=== PATIENT | male | born 1955 | race Asian ===

== ENCOUNTER 2022-02-25 14:32 | Emergency (ER) | payer MEDICAID, SELFPAY ==
[2022-02-25 14:46] VITALS: BP 147/123; PULSE 58; RESP 24; TEMP 36.5; O2SAT 100
[2022-02-25 14:52] VITALS: RESP 24
--- NOTE | 2022-02-25 15:23 | ED.GENADULT ---
HPI - General Adult General Chief complaint: Unspecified Stated complaint: needed prescription Source: patient and family Mode of arrival: ambulatory Limitations: no limitations History of Present Illness HPI narrative: Patient presents for evaluation of shortness of breath. Symptom onset 2 days ago. He has a productive cough of white sputum and a runny nose. No recent sick contacts to his knowledge. He is unsure whether he has had COVID. He is from the [facility] and moved here in October. In 2020 he was experiencing respiratory symptoms for which she was seen in urgent care several times. He was told his symptoms were related to asthma. He was unable to see a primary care provider as they were concerned he may have COVID. Ultimately he had a chest x-ray performed showed cardiomegaly. He had an echocardiogram that showed an ejection fraction of 56%. Atrial fibrillation was noted. Patient had dilated left ventricular size with hypertrophied thornton and a regular contractility with hypokinesia of the mid to apical segments of the posterior left ventricular free wall. There was dilated left atrium, multi segmental wall motion abnormality but with adequate systolic function. There was mild pulmonary hypertension present. He was recommended he have an angiogram performed. His VISA was approved so he came to the [place] and daughter planned to have performed here. He has an appointment to see Dr. Sanchez at [facility] at the end of this month. He has been off his medications which include Plavix, Entresto, and nebivolol for about 1 week. He denies any fever, chills, nausea, vomiting, diarrhea, sore throat, chest pain Related Data Home Medications Medication Instructions Recorded Confirmed atorvastatin 20 mg tablet 20 mg PO HS 02/25/22 02/25/22 clopidogrel 75 mg tablet 75 mg PO DAILY 02/25/22 02/25/22 furosemide 20 mg tablet 10 mg PO DAILY 02/25/22 02/25/22 nebivolol 5 mg tablet 5 mg PO DAILY 02/25/22 02/25/22 rivaroxaban 10 mg tablet 5 mg PO HS 02/25/22 02/25/22 sacubitril 97 mg-valsartan 103 mg 1 tablet PO BID 02/25/22 02/25/22 tablet Allergies Allergy/AdvReac Type Severity Reaction Status Date / Time No Known Allergies Allergy Verified 02/25/22 14:49 Review of Systems Review of Systems: CONSTITUTIONAL: Denies fever, chills, or sweats. EYES: Denies visual changes, redness, or discharge. ENT: Denies rhinorrhea, congestion, sore throat, or otalgia. CARDIOVASCULAR: Denies chest pain, palpitations, or edema. RESPIRATORY: Reports shortness of breath and productive cough of white sputum. GASTROINTESTINAL: Denies abdominal pain, nausea, vomiting, or diarrhea. GENITOURINARY: Denies dysuria or hematuria. SKIN: Denies rash or itching. MUSCULOSKELETAL: Denies back pain, joint pain, or myalgia. NEUROLOGIC: Denies headache, numbness, dizziness, or weakness. PSYCHIATRIC: Denies anxiety or depression. [facility] Past Medical History Medical History Atrial fibrillation Congestive heart failure Hypertension Surgical History Surgical History No pertinent past surgical history Family History Family History Mother Family history non-contributory Social History Social History (Updated 02/25/22 @ 15:31 by MAURICIO Jewell, ) Smoking status: Never smoker Substance use: never Living arrangements: with family Gender identity (if verbalized by the patient): Male Sexual Orientation (if Verbalized by the Patient): Straight or Heterosexual Exam Narrative: GENERAL: Well-appearing, well-nourished, and in no acute distress. HEAD: Normocephalic, atraumatic. EYES: PERRLA and EOMI. ENT: Nares clear, no rhinorrhea or epistaxis. Mucous membranes moist. Oropharynx without tonsillar hypertrophy exudate or other lesions. Bilateral TMs abram
== END 2022-02-25 15:26 | disposition short-term general hospital (02) ==
PROVIDERS: Emergency Provider Nurse Practitioner
DX: R06.02 Shortness of breath (principal); I48.91 Unspecified atrial fibrillation; Z20.822 Contact with and (suspected) exposure to COVID-19; I11.0 Hypertensive heart disease with heart failure; I50.9 Heart failure, unspecified
CPT/HCPCS: 87426; 99213; C9803; G0463

== ENCOUNTER 2022-03-16 08:15 | Emergency (ER) | payer MEDICAID, SELFPAY ==
--- NOTE | 2022-03-16 08:18 | ED.URI ---
HPI - URI/Sore Throat General Chief Complaint: Upper Respiratory Infection Stated Complaint: cough and runny nose Time Seen by Provider: 03/16/22 08:18 Source: patient and RN notes reviewed History of Present Illness HPI Narrative: Patient 67-year-old male who presents the urgent care with complaints of cough and rhinorrhea. Patient presents with his daughter who helps to translate. Daughter states that he is having surgery on March 28 at [facility] due to his recent atrial fibrillation and murmur. Patient is having open heart surgery with mitral valve replacement. States that he has had this cough for approximately 3 weeks and his surgeon wanted him to get evaluated prior to surgery. Patient denies any fevers. States he has not taken anything [id number] for his symptoms. Patient is currently denying wheezing or shortness of breath with the cough. States that the cough is sometimes productive in the morning and is clear. Denies of any ill exposures. No other acute complaints. No acute distress noted. Patient and daughter aware of the plan of care. Some parts of this dictation were generated by voice recognition software and may contain typographical and/or grammatical inaccuracies. Related Data Home Medications Medication Instructions Recorded Confirmed clopidogrel 75 mg tablet 75 mg PO DAILY 02/25/22 03/16/22 allopurinol 100 mg tablet 100 mg PO DAILY 03/16/22 03/16/22 aspirin 81 mg chewable tablet 81 mg PO DAILY 03/16/22 03/16/22 atorvastatin 40 mg tablet 40 mg PO DAILY 03/16/22 03/16/22 empagliflozin 10 mg tablet 10 mg PO DAILY 03/16/22 03/16/22 (Jardiance) furosemide 40 mg tablet 40 mg PO DAILY 03/16/22 03/16/22 rivaroxaban 15 mg tablet (Xarelto) 15 mg PO DAILY 03/16/22 03/16/22 sacubitril 49 mg-valsartan 51 mg 1 tablet PO BID 03/16/22 03/16/22 tablet (Entresto) Allergies Allergy/AdvReac Type Severity Reaction Status Date / Time No Known Allergies Allergy Verified 03/16/22 08:35 Review of Systems Review of Systems: CONSTITUTIONAL: Denies fever, chills, or sweats. EYES: Denies visual changes, redness, or discharge. ENT: Denies congestion, sore throat, or otalgia. Reports of rhinorrhea CARDIOVASCULAR: Denies chest pain, palpitations, or edema. RESPIRATORY: Reports of cough without dyspnea or wheezing GASTROINTESTINAL: Denies abdominal pain, nausea, vomiting, or diarrhea. GENITOURINARY: Denies dysuria or hematuria. SKIN: Denies rash or itching. MUSCULOSKELETAL: Denies back pain, joint pain, or myalgia. NEUROLOGIC: Denies headache, numbness, or weakness. All other systems reviewed are negative, except as documented in HPI. [facility] Past Medical History Medical History (Updated 03/16/22 @ 08:38 by BALBINA TraoreP) Atrial fibrillation Congestive heart failure Hypertension Surgical History Surgical History No pertinent past surgical history Family History Family History Mother Family history non-contributory Social History Social History (Updated 02/25/22 @ 15:31 by MAURICIO Jewell, ) Smoking status: Never smoker Substance use: never Gender identity (if verbalized by the patient): Male Sexual Orientation (if Verbalized by the Patient): Straight or Heterosexual Comments At the time of my signature, I reviewed and agree with the nursing past medical, surgical, social, and family history. There is no relevant family history pertinent to the patient complaint. Exam Narrative: GENERAL: This is a well-nourished, well-developed patient, in no apparent distress. HEAD: normocephalic, atraumatic. EYES: PERRL. Sclera clear/white. Vision is grossly intact. EARS: External ears normal, auditory canals clear and without drainage, TMs normal without perforation. Hearing grossly intact. NOSE: External nose normal with no obvious nasal discharge, nares without re
[2022-03-16 08:19] VITALS: BP 149/72; PULSE 106; RESP 16; TEMP 36.5; O2SAT 100
== END 2022-03-16 08:40 | disposition home or self-care (01) ==
PROVIDERS: Emergency Provider Nurse Practitioner Family
DX: J40 Bronchitis, not specified as acute or chronic (principal); J32.9 Chronic sinusitis, unspecified; I48.91 Unspecified atrial fibrillation; I11.0 Hypertensive heart disease with heart failure; I50.9 Heart failure, unspecified; Z79.82 Long term (current) use of aspirin
CPT/HCPCS: 99213; G0463